=== PATIENT | male | born 1990 | race Caucasian/White ===

== ENCOUNTER 2021-02-03 12:05 | Emergency (ER) | payer OTHER, SELFPAY ==
--- NOTE | ~2021-02-03 | XR_ITS ---
EXAMINATION: XR FOREARM, RIGHT XR HAND WRIST, RIGHT CLINICAL INFORMATION: Trauma, cut with glass. COMPARISON: None TECHNIQUE: AP and lateral views of the right forearm were obtained. The right hand and wrist are imaged together in 3 large [id number] images. FINDINGS: There is no fracture or dislocation or bony destructive process. The bony mineralization appears normal. There is no periostitis. No elbow capsular effusion. Soft tissue injury suggested adjacent to head and neck fifth metacarpal. There is no radiopaque soft tissue foreign body seen in this area. A punctate 2 mm triangular density close to the skin surface is noted more proximally medial side of wrist. No visible soft tissue defect or gas in soft tissues. Finding is of doubtful significance, possibly gritty material on the skin. Clinically correlate. XR/XR forearm RT 2V IMPRESSION: 1. No fracture, dislocation, or destructive process. 2. Soft tissue defect medial side hand adjacent to head and neck fifth metacarpal. No radiopaque soft tissue from body. 3. Punctate 2 mm triangular density close to skin surface more proximally medial side of wrist of doubtful significance, possibly gritty material on skin. Clinically correlate.
--- NOTE | ~2021-02-03 | XR_ITS ---
EXAMINATION: XR FOREARM, RIGHT XR HAND WRIST, RIGHT CLINICAL INFORMATION: Trauma, cut with glass. COMPARISON: None TECHNIQUE: AP and lateral views of the right forearm were obtained. The right hand and wrist are imaged together in 3 large [id number] images. FINDINGS: There is no fracture or dislocation or bony destructive process. The bony mineralization appears normal. There is no periostitis. No elbow capsular effusion. Soft tissue injury suggested adjacent to head and neck fifth metacarpal. There is no radiopaque soft tissue foreign body seen in this area. A punctate 2 mm triangular density close to the skin surface is noted more proximally medial side of wrist. No visible soft tissue defect or gas in soft tissues. Finding is of doubtful significance, possibly gritty material on the skin. Clinically correlate. XR/XR hand wrist RT IMPRESSION: 1. No fracture, dislocation, or destructive process. 2. Soft tissue defect medial side hand adjacent to head and neck fifth metacarpal. No radiopaque soft tissue from body. 3. Punctate 2 mm triangular density close to skin surface more proximally medial side of wrist of doubtful significance, possibly gritty material on skin. Clinically correlate.
[2021-02-03 12:22] VITALS: BP 117/63; PULSE 78; RESP 18; TEMP 36.6; O2SAT 98; BMI 29.8
[2021-02-03] MEDS: Ibuprofen 800 MG TABLET PO (14:46)
[2021-02-03] MEDS: Diphth,Pertus(ACell),Tet Adult 0.5 ML SYRINGE IM (14:46)
[2021-02-03] MEDS: Lidocaine HCl 2 % MPF 5 ML VIAL INFILTRATI ×2 (14:51→14:52)
[2021-02-03 15:51] VITALS: BP 139/71; PULSE 88; RESP 16; TEMP 36.9; O2SAT 99
[2021-02-03] MEDS: oxyCODONE HCl Immed Release 5 MG TABLET PO (17:00)
--- NOTE | 2021-02-03 17:43 | ED.WOUNDLAC ---
HPI - Wound/Laceration General Chief Complaint: Wound/Laceration Stated Complaint: Hand lac Time Seen by Provider: 02/03/21 14:36 Source: patient and family Mode of arrival: ambulatory Limitations: no limitations History of Present Illness HPI narrative: Patient presents to ED for laceration of right hand and wrist due to glass. Patient stated last cutting while at work. Patient has complete range of motion of all fingers, and wrist of right upper extremity. Patient denies any other trauma. Related Data Previous Rx's Medication Instructions Recorded cephalexin 500 mg capsule 500 mg PO QID 7 Days #28 cap 02/03/21 naproxen 500 mg tablet 500 mg PO BID PRN 10 Days #20 tab 02/03/21 Allergies Allergy/AdvReac Type Severity Reaction Status Date / Time No Known Allergies Allergy Verified 02/03/21 14:36 [facility] Social History Social History Alcohol intake: never Smoked in Last 30 Days: No Use of substances other than those prescribed or required for medical reasons: No Any prior treatment program specific to substance use: No Advance Directives: No Advance Directives Information Provided: Yes Physical Exam Vital Signs: Vital Signs: Last Vital Signs Temp 98.4 F 02/03/21 15:51 Pulse 88 02/03/21 15:51 Resp 16 02/03/21 15:51 BP 139/71 02/03/21 15:51 Pulse Ox 99 02/03/21 15:51 BMI result Body Mass Index 29.8 Const: General: cooperative, healthy appearing, comfortable, no acute distress, well developed, alert, awake and Physically active Orientation/consciousness: patient oriented x3 HENMT: Head: Yes normal to inspection, Yes No palpable skull fracture present, Yes normocephalic, Yes atraumatic and No abrasion Eyes: General: appearance normal, both eyes and all related structures Neck: Neck: Yes normal visual inspection, Yes full ROM, Yes no lymphadenopathy, Yes no meningeal signs, Yes trachea midline, No supple and No tender Chest: Chest palpation & inspection: normal inspection of the chest and normal palpation of entire chest wall Resp: Effort & Inspection: normal respiratory effort and able to speak in complete sentences Auscultation: clear to auscultation bilaterally Cardio: Jugular venous distension: no JVD Heart sounds: S1 normal heart sound present and S2 normal heart sound present GI: Inspection: Yes normal to inspection and No abdominal wall ecchymosis Palpation (GI): Soft to palpation, not firm, nontender, no guarding and not rigid : General: No CVA tenderness and Yes no CVA tenderness Back/Spine/Pelvis: Back: no CVA tenderness, No CVA tenderness and No back tenderness Skin: General skin exam: no rashes or lesions noted and elasticity normal Neuro: General: patient oriented x3, gait normal and no meningeal signs Cranial nerves: Yes CN's II-XII intact bilaterally Extrem: General: Yes normal to inspection and Yes full ROM Elbow/forearm/wrist images: 1. Small laceration was mild active bleeding. Negative for foreign body. Motor/nerve/vascular exam intact Hand/finger images: 1. Open laceration with tendon exposed. Patient's complete flexion extension of 5th finger and all other fingers. Capillary refill intact. All fingers movement and capillary refill is intact. All fingers neuro exam intact. Negative for wrist drop. Motor/neuro/vascular exam intact. Negative for signs of tendon injury. patient can move all fingers. 2. Small laceration on the lateral palm with no active bleeding. No sutures indicated. Laceration very superficial. Psych: Appearance: grossly normal, well kempt and not disheveled Course Course Course Narrative: X-rays ordered to rule out foreign body. Tetanus ordered Reevaluation(s) Reevaluation #1: Right hand laceration clean with normal saline Betadine iodine. 2 % lidocaine 9 mL placed into wound Size 3 nylon sutures used. Eight sutures placed. Forearm laceration clean with Betadine iodine and sterile saline. 2% lidocaine 3 mL placed. Two sutures placed. Negative for wrist drop or signs of tendon injury. Patient will be discharged with antibiotics. Tetanus given Time: 17:50 MDM - Wound/Laceration MDM Narrative Medical decision making narrative: Hand laceration Discharge Plan Discharge Clinical Impression: Laceration of hand Patient Disposition: Home, Self-Care Instructions: Laceration (ED) Additional Instructions: Return to the ED immediately if there is any redness, foul odor, pus discharge, fever, chills, inability to move finger or wrist, bluish black discoloration, red streaks, hotness, coolness, or any other concerning symptoms. Sutures should be removed in 11 days. Prescriptions: New cephalexin 500 mg capsule 500 mg PO QID 7 Days Qty: 28 RF: 0 naproxen 500 mg tablet 500 mg PO BID PRN (Reason: pain) 10 Days Qty: 20 RF: 0 Referrals: [facility] [Outside] - 2 days (Right hand/forearm laceration.) Stand Alone Forms: Work/School Release Interventions: ED Discharge Assessment Last Done: 02/03/21 18:10 Discharge Date/Time: 02/03/21 18:16 Print Language: Latvian
== END 2021-02-03 18:16 | disposition home or self-care (01) ==
PROVIDERS: Emergency Provider Emergency Medicine
DX: S61.411A Laceration without foreign body of right hand, initial encounter (principal); S51.811A Laceration without foreign body of right forearm, initial encounter; S61.511A Laceration without foreign body of right wrist, initial encounter; W25.XXXA Contact with sharp glass, initial encounter; Y93.9 Activity, unspecified; Y92.9 Unspecified place or not applicable; Y99.0 Civilian activity done for income or pay
CPT/HCPCS: 12001; 12041; 73090; 73110; 73130; 90471; 90715; 99284

== ENCOUNTER → 2021-02-05 13:17 | Outpatient (BNVA) | payer OTHER, SELFPAY | PROVIDERS: Visit Provider Internal Medicine | DX: S61.411A Laceration without foreign body of right hand, initial encounter (principal); M62.81 Muscle weakness (generalized); X58.XXXA Exposure to other specified factors, initial encounter | CPT/HCPCS: 99202 ==

== ENCOUNTER → 2021-02-12 09:03 | Outpatient (BNVA) | payer OTHER, SELFPAY | PROVIDERS: Visit Provider Internal Medicine | DX: S61.216A Laceration without foreign body of right little finger without damage to nail, initial encounter (principal); X58.XXXA Exposure to other specified factors, initial encounter; Z48.02 Encounter for removal of sutures | CPT/HCPCS: 99212; 99213 ==

== ENCOUNTER → 2021-02-27 11:00 | Outpatient (BNVA) | payer OTHER, SELFPAY | PROVIDERS: Visit Provider Physician Assistant Medical | DX: S61.411D Laceration without foreign body of right hand, subsequent encounter (principal); W26.9XXD Contact with unspecified sharp object(s), subsequent encounter | CPT/HCPCS: 99213 ==